=== PATIENT | male | born 1930 | race Caucasian/White ===

== ENCOUNTER 2017-06-17 09:34 | Emergency (ER) | payer OTHER ==
[~2017-06-17] VITALS: Ht 172.7 cm; Wt 72.6 kg
--- NOTE | ~2017-06-17 | EKG ---
[address] [address] ELECTROCARDIOGRAM REPORT Name: SHYLA LENNON [facility] [id number] Admission: 06/17/17 Attend Phys: Discharge: Date of : 32 Report #: [id number] THIS REPORT FOR: //name// [facility] ED Test Date: 2017-06-17 Test Time: 10:26:40 Pat Name: SHYLA LENNON Department: Room: Gender: Student Support Advisor: Too COSTA : 1930 Requested By: Marie Nelson Order Number: [id number] MD: Brenton Fleming Measurements Intervals [place] Rate: 63 P: 24 AL: 166 QRS: 61 QRSD: 93 T: 55 QT: 399 QTc: 409 Interpretive Statements Sinus rhythm No previous ECG available for comparison Electronically Signed On 06-17-2017 11:24:13 CDT by Brenton Fleming [email or web address] <ELECTRONICALLY SIGNED> By: Brenton Fleming MD 06/17/17 1124 1026 1026 Brenton Fleming MD /EPI
[2017-06-17 11:01] LABS: ABSOLUTE NEUTROPHILS 4.3 thou/uL (1.4-8.2); BASOPHILS 0.5 % (0.0-2.0); EOSINOPHILS 0.4 % (0.0-3.0); HEMATOCRIT 38.1 % (42.0-52.0); HEMOGLOBIN 12.7 gm/dL (14.0-18.0); LYMPHOCYTES 10.5 % (24.0-44.0); MANUAL DIFF NO; MCH 31.7 pg (26.0-34.0); MCHC 33.2 g/dL (28.0-37.0); MCV 95.4 fL (80.0-100.0); MONOCYTES 6.9 % (1.0-8.0); PLATELET COUNT 192 thou/uL (150-400); POLYS 81.7 % (36.0-66.0); RBC 3.99 mil/uL (4.50-6.00); RDW 13.7 % (10.5-14.5); WBC 5.3 thou/uL (4.0-11.0)
[2017-06-17 11:03] LABS: CREATININE 0.8 mg/dL (0.7-1.3); POTASSIUM 4.2 mmol/L (3.5-5.1)
[2017-06-17 11:23] VITALS: BP 125/59
== END 2017-06-17 11:59 | disposition home or self-care (01) ==
LOC: ER 09:34
PROVIDERS: Emergency Medicine
DX: R42 Dizziness and giddiness (principal); F03.90 Unspecified dementia, unspecified severity, without behavioral disturbance, psychotic disturbance, mood disturbance, and anxiety; Z87.891 Personal history of nicotine dependence; W18.39XA Other fall on same level, initial encounter; Y93.89 Activity, other specified; Y92.89 Other specified places as the place of occurrence of the external cause; Y99.8 Other external cause status

== ENCOUNTER 2018-02-10 11:44 | Inpatient (IN) | payer OTHER ==
[~2018-02-10] VITALS: Ht 177.8 cm; Wt 68.0 kg
--- NOTE | ~2018-02-10 | EKG ---
[address] [address] ELECTROCARDIOGRAM REPORT Name: SHYLA LENNON Room #: 430-P ADM IN M.R.#: [id number] Admission: 02/10/18 Attend Phys: Hunter Roberts MD Discharge: Date of : 32 Report #: [id number] THIS REPORT FOR: //name// [facility] ED Test Date: 2018-02-10 Test Time: 11:52:47 Pat Name: SHYLA LENNON Department: Room: Gender: [facility] Instructor: SHAKEEL : 1930 Requested By: Pastor Ortega Order Number: [id number] MD: Brenton Fleming Measurements Intervals [place] Rate: 66 P: 64 MA: 173 QRS: 49 QRSD: 87 T: 54 QT: 383 QTc: 402 Interpretive Statements Sinus rhythm Compared to ECG 06/17/2017 10:26:40 No significant changes Electronically Signed On 02-10-2018 19:55:28 CDT by Brenton Fleming [email or web address] <ELECTRONICALLY SIGNED> By: Brenton Fleming MD 02/10/181954 115 115 Brenton Fleming MD /ASA
[2018-02-10 11:45] VITALS: BP 118/70
[2018-02-10 12:25] LABS: HEMATOCRIT 35.7 % (42.0-52.0); HEMOGLOBIN 12.1 gm/dL (14.0-18.0); MCH 32.4 pg (26.0-34.0); MCV 95.1 fL (80.0-100.0); RBC 3.75 mil/uL (4.50-6.00); RDW 13.6 % (10.5-14.5)
[2018-02-10 12:35] LABS: ANION GAP 8 mmol/L (7-16); BUN 11 mg/dL (7-18); CALCIUM 9.2 mg/dL (8.5-10.1); CHLORIDE 96 mmol/L (98-107); CO2 24 mmol/L (21-32); CREATININE 0.9 mg/dL (0.7-1.3); GLUCOSE 132 mg/dL (74-106); POTASSIUM 4.1 mmol/L (3.5-5.1); SODIUM 128 mmol/L (136-145)
[2018-02-10 12:43] LABS: TROPONIN-I < 0.04 ng/mL (<0.06)
[2018-02-10 14:04] LABS: URINE BILIRUBIN NEGATIVE (Negative); URINE BLOOD NEGATIVE (Negative); URINE CLARITY CLEAR; URINE COLOR YELLOW; URINE GLUCOSE-RANDOM* NEGATIVE (Negative); URINE KETONES NEGATIVE (Negative); URINE LEUKOCYTES-REFLEX NEGATIVE (Negative); URINE NITRITE-REFLEX NEGATIVE (Negative); URINE PROTEIN (DIPSTICK) NEGATIVE (Negative); URINE UROBILINOGEN 0.2 E.U./dl (0.2-1.0)
[2018-02-10 14:34] VITALS: BP 118/70
[2018-02-10 16:01] VITALS: BP 172/89
[2018-02-10 20:40] VITALS: BP 136/76
[2018-02-11 04:04] VITALS: BP 110/66
[2018-02-11 05:42] LABS: HEMATOCRIT 35.2 % (42.0-52.0); MCH 32.1 pg (26.0-34.0); MCV 94.3 fL (80.0-100.0); RBC 3.74 mil/uL (4.50-6.00); RDW 13.8 % (10.5-14.5)
[2018-02-11 05:59] LABS: CALCIUM 8.9 mg/dL (8.5-10.1); CREATININE 0.9 mg/dL (0.7-1.3); POTASSIUM 3.8 mmol/L (3.5-5.1)
[2018-02-11 15:19] VITALS: BP 164/84
[2018-02-11 19:42] VITALS: BP 139/68
[2018-02-12 08:51] LABS: ABSOLUTE NEUTROPHILS 5.2 thou/uL (1.4-8.2); BASOPHILS 0.7 % (0.0-2.0); HEMATOCRIT 38.5 % (42.0-52.0); HEMOGLOBIN 12.7 gm/dL (14.0-18.0); MCH 31.7 pg (26.0-34.0); MCHC 33.1 g/dL (28.0-37.0); MCV 95.8 fL (80.0-100.0); MONOCYTES 8.2 % (1.0-8.0); PLATELET COUNT 241 thou/uL (150-400); POLYS 73.1 % (36.0-66.0); RBC 4.02 mil/uL (4.50-6.00); WBC 7.1 thou/uL (4.0-11.0)
[2018-02-12 08:54] LABS: CALCIUM 9.1 mg/dL (8.5-10.1); CREATININE 0.7 mg/dL (0.7-1.3); POTASSIUM 3.5 mmol/L (3.5-5.1)
[2018-02-12 12:04] VITALS: BP 172/78
[2018-02-12 16:56] VITALS: BP 166/87
[2018-02-12 20:24] VITALS: BP 137/44
[2018-02-12 21:00] VITALS: BP 180/87
[2018-02-13 06:45] VITALS: BP 174/84
[2018-02-13 08:51] VITALS: BP 159/42
[2018-02-13] MEDS ORDERED: ASPIR 8181 MG PO (10:42)
[2018-02-13] MEDS ORDERED: CENTRUM SILVER1 EAC4 PO (10:42)
[2018-02-13] MEDS ORDERED: LORAZEPAM 0.50.5 M1 PO (10:43)
[2018-02-13] MEDS ORDERED: ATIVAN0.5 MG PO (10:44)
[2018-02-13] MEDS ORDERED: MELATONIN5 M3 PO (10:45)
[2018-02-13] MEDS ORDERED: NYAMYC15 GM TOP (10:46)
[2018-02-13] MEDS ORDERED: REMERON15 MG PO (10:46)
[2018-02-13] MEDS ORDERED: TYLENOL325 MG PO (10:47)
[2018-02-13 16:41] VITALS: BP 148/76
[2018-02-13 19:15] VITALS: BP 173/82; BP 186/83
[2018-02-14 04:00] VITALS: BP 152/64
[2018-02-14 07:20] VITALS: BP 152/77
[2018-02-14 15:38] VITALS: BP 164/73
[2018-02-15] MEDS ORDERED: RAPAFLO8 MG PO (12:57)
== END 2018-02-14 18:46 | DRG 70 ==
LOC: ER 11:44 → 4E 15:57
PROVIDERS: Emergency Medicine; Hospitalist
DX: G93.41 Metabolic encephalopathy (principal); E43 Unspecified severe protein-calorie malnutrition; E87.1 Hypo-osmolality and hyponatremia; F03.91 Unspecified dementia, unspecified severity, with behavioral disturbance; F05 Delirium due to known physiological condition; R31.9 Hematuria, unspecified; R33.9 Retention of urine, unspecified; R26.9 Unspecified abnormalities of gait and mobility; R45.1 Restlessness and agitation; I10 Essential (primary) hypertension; W18.09XA Striking against other object with subsequent fall, initial encounter; Y93.89 Activity, other specified; Y92.89 Other specified places as the place of occurrence of the external cause; Y99.8 Other external cause status; Z87.891 Personal history of nicotine dependence; Z88.0 Allergy status to penicillin
CPT/HCPCS: 10783

== ENCOUNTER 2018-02-14 15:57 | Inpatient (IN) | payer OTHER ==
[~2018-02-14] VITALS: Ht 177.8 cm; Wt 58.2 kg
--- NOTE | ~2018-02-14 | HC ---
[facility] [place] [address] CONSULTATION Name: SHYLA LENNON Room #: 514-P [facility] IN M.R.#: [id number] Admission: 02/14/18 Attend Phys: Tj Marie MD Discharge: Date of : 32 Report #: [id number] THIS REPORT FOR: //name// CC: Tj Marie [facility] unknown DATE OF SERVICE: 02/16/2018 NEUROBEHAVIORAL STATUS EXAMINATION AGE: 87. ATTENDING PHYSICIAN: Tj Marie MD SUPERVISOR URANIUM PROCESSING: Yandel Garcia, PhD CLINICAL PRESENTATION: The patient is an 87-year-old male admitted to the rehab unit at [facility] to provide a comprehensive inpatient rehabilitation program to improve functional mobility, activities of daily living and self-care and mental status secondary to deficits from toxic metabolic encephalopathy. He was initially found down following a syncopal episode and was agitated and combative at the scene. He had been living in an assisted care facility and carries a diagnosis of dementia. The dementia had been identified about 4 years ago. His assessment on admission also includes hyponatremia, hypokalemia, possible concurrent mild head injury, altered mental status, functional decline, urinary retention with hematuria, history of hypertension and a former tobacco smoker. A complete description of his medical condition and history can be found in his medical record. Neuropsychological consultation was requested to provide assistance in the assessment of cognitive and emotional status and to provide recommendations and services. As indicated, prior to this most recent medical event, he was living with his in an assisted living facility for patients with dementia. His carries the diagnosis of Alzheimer's disease. The patient is a college graduate. 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 He has four children. His daughter, Bushra is his primary support system. TECHNIQUES UTILIZED: Clinical interview, review of medical records, staff consultation and behavioral observation, family interview -- daughter Bushra, mini mental status exam 2 brief version. EXAMINATION FINDINGS: The patient was alert and cooperative with the [facility] [address] [place] [address] CONSULTATION Name: SHYLA LENNON Room #: 514-P [facility] IN M.R.#: [id number] Admission: 02/14/18 Attend Phys: Tj Marie MD Discharge: Date of : 32 Report #: [id number] assessment. He was unable to describe the reason for his hospitalization. He does not present with auditory or visual hallucinations. However, he does have delusional ideation. His daughter indicates that he has often talked about relatives that have long since as if they were currently alive. He had been living with his and with a personal chef in their home until 2 years ago when they both moved to the [facility]. There is no reported prior history of treatment for depression or anxiety. The patient does not present with an aphasia. However, he does have deficits in naming suggesting an anomia. His performance on the MMSE 2 brief version was 5/16 suggesting severe impairment. He was 3/3 for initial registration, 2/5 for orientation to time, 0/[address], and 0/3 for immediate recall of 3 items after a brief time delay and distraction. 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 This type of presentation is consistent with an initial delirium with an underlying Alzheimer's type presentation. DIAGNOSTIC IMPRESSION: Major neurocognitive disorder (dementia), possibly due to Alzheimer's disease, with intermittent irritability and agitation -- extent to be determined, likely in the jybgnlyd-os-sjfcda range. Unspecified anxiety disorder. RECOMMENDATIONS: The patient will benefit from a validation type approach to communication. Statements that reflect confusion and delusional ideation should be responded with a validation approach that provides reassurance, rather than reality orientation. Distraction and redirection will also assist overall adjustment. Continued 24-hour care at discharge in a memory care unit is suggested. Consider the use of an antidepressant medication along with the medication to support memory and memantine. Thank you very much for allowing me to provide the consultation on this patient. <ELECTRONICALLY SIGNED> By: Yandel Garcia, PhD 02/17/18 1737 1454 [id number] Yandel Garcia, PhD /nt
--- NOTE | ~2018-02-14 | PLAN ---
[facility] [place] [address] REHAB UNIT PLAN OF CARE Name: SHYLA LENNON Room #: 514-P ADM IN M.R.#: [id number] Admission: 02/14/18 Attend Phys: Tj Marie MD Discharge: Date of : 32 Report #: [id number] THIS REPORT FOR: //name// CC: Tj Marie [facility] unknown DATE OF SERVICE: 02/15/2018 OVERALL PLAN OF CARE The overall plan of care is based on preadmission screen, post-admission physician evaluation and information garnered from therapy assessments: 1. Estimated length of stay is probably at least 1 to 2 weeks pending progress. 2. Medical prognosis is reasonably good. 3. Anticipated interventions includes the interdisciplinary acute inpatient rehabilitation program with PT, OT, speech, rehab nursing assisting regarding medication management, skin care prophylaxis, bowel and bladder issues with his Colon catheter. We will have the interdisciplinary rehab team involved as well as the pmo consultant physicians. 4. Anticipated functional outcomes would be for the patient to hopefully be back up ambulatory again at least with the walker and improved as far as his basic ADLs that he can return back to the prior functional level he was at, so he can get back to his assisted living. 5. Discharge destination would be back to the assisted living facility. 6. Expected therapy by discipline includes PT, OT and speech 1 hour per day each 5 days a week throughout the duration of the acute inpatient rehabilitation stay. <ELECTRONICALLY SIGNED> By: Tj Marie MD 02/21/18 1516 1004 1056 Tj Marie MD /nt
--- NOTE | ~2018-02-14 | H ---
[facility] [place] [address] HISTORY AND PHYSICAL Name: SHYLA LENNON Room #: 514-P ADM IN M.R.#: [id number] Admission: 02/14/18 Attend Phys: Tj Marie MD Discharge: Date of : 32 Report #: [id number] THIS REPORT FOR: //name// CC: Tj Marie [facility] unknown DATE OF SERVICE: 02/14/2018 HISTORY AND PHYSICAL/POSTADMISSION PHYSICIAN EVALUATION HISTORY OF PRESENT ILLNESS: The patient is an 87-year-old white male who resides in an assisted living facility at [place] [facility] in a memory care unit with his (the memory care unit is noted to be her), who presented after a syncopal episode while outside in the heat. He was found to be hyponatremic and very agitated and combative, which is noted to be out of the norm for him. He had a sitter while on the acute hospital side and there is a note of some underlying dementia, but his presentation was noted to be significantly worse than baseline. He previously had been ambulating independently without a gait aide. He had a Colon in place, pulled on it and caused some trauma at the end of the penis with bloody drainage. Urology saw him and recommended continuing the catheter for now with removal in a week or two and use of Rapaflo. The patient also was noted to have significant hypokalemia with supplementation. He was noted to have a significant worsening of his cognition with a toxic metabolic encephalopathy and a marked decrease in his functional abilities and has been admitted for acute in-hospital inpatient rehabilitation. ALLERGIES: PENICILLIN. PAST MEDICAL HISTORY: Includes hypertension. HABITS: Former tobacco abuse. No history of alcohol abuse. MEDICATIONS: Please see the full medication listing, this includes the patient's herbals, vitamins and supplements. SOCIAL HISTORY: As noted above. He had a walker in the past, but apparently, was not utilizing an assistive device and was modified independent at the facility, which is an assisted living facility with his . REVIEW OF SYSTEMS: Main issue is he does not like the Colon catheter. No complaints of chest pain, shortness of breath or abdominal discomfort. PHYSICAL EXAMINATION: GENERAL: The patient was seen yesterday. He was alert. VITAL SIGNS: His temperature is 36.4, pulse 72, respirations 17, blood pressure 137/80. [address] [address] HISTORY AND PHYSICAL Name: SHYLA LENNON Room #: 514-[facility] IN M.R.#: [id number] Admission: 02/14/18 Attend Phys: Tj Marie MD Discharge: Date of : 32 Report #: [id number] HEENT: Appeared to be benign. Facies were symmetric. CHEST: Sounded clear to auscultation. CARDIAC: Regular rate and rhythm. ABDOMEN: Bowel sounds positive, nontender. GENITOURINARY AND RECTAL: He does have indwelling Colon catheter. There is a slight amount of bloody drainage at the distal end of his penis. He tends to be fidgety and wants to remove the catheter. NEUROLOGIC AND MUSCULOSKELETAL: As far as his mental status, he tends to be fixated on the catheter removal. He does respond to simple redirection and has definite decreased insight, needs cues for direction following. He has functional range of motion of both upper extremities with strength of grade 4-/5. Lower extremities have functional range of motion with strength of grade 4-/5. Transfers are max assist, bed mobility has been min assist, lower body dressing is max assist. This is all a significant decrease from his premorbid status. ASSESSMENT: An 87-year-old white male with the following problem list: 1. Toxic metabolic encephalopathy. 2. Hyponatremia. 3. Hypokalemia. 4. Fall from ground level, question if he had a concurrent mild head injury. 5. Altered mental status. 6. Significant functional decline from premorbid status. 7. Urinary retention with hematuria. 8. History of hypertension. 9. Former tobacco smoker. PLAN: The patient is admitted for acute in-hospital inpatient rehabilitation. From a postadmission physician evaluation perspective, there are no relevant changes since the preadmission screening. Please see the above review of prior and current medical and functional conditions and comorbidities. Please see the patient's previous and current functional status. As far as risk of complications, the patient has the above noted medical comorbidities. Initial plan of care involves the interdisciplinary acute inpatient rehabilitation program with the goal of maximizing the patient's functional independence, so he can hopefully return back to his prior living situation. Prognosis is reasonably good with estimated length of stay probably at least 1 to 2 weeks. We will need to see how he does. Potential barriers would include his above noted comorbidities, the indwelling Colon catheter which he tends to focus on, and his decreased functional status. The patient meets diagnostic appropriate criteria. He does have the medical necessity for an acute inpatient rehabilitation stay and has appropriate discharge goals back to the home setting. He does have the tolerance for [facility] [address] [place] [address] HISTORY AND PHYSICAL Name: SHYLA LENNON Room #: 514-P ADM IN M.R.#: [id number] Admission: 02/14/18 Attend Phys: Tj Marie MD Discharge: Date of : 32 Report #: [id number] therapies and has appropriate discharge goals back home. He does meet the medical necessity criteria. <ELECTRONICALLY SIGNED> By: Tj Marie MD 02/21/18 1516 1001 1026 Tj Marie MD /nt
--- NOTE | ~2018-02-14 | D ---
[facility] [address] [place] [address] DISCHARGE SUMMARY Name: SHYLA LENNON Room #: 514-P ADM IN M.R.#: [id number] Admission: 02/14/18 Attend Phys: Tj Marie MD Discharge: Date of : 32 Report #: [id number] THIS REPORT FOR: //name// CC: Tj CRUZ unknown DATE OF SERVICE: 02/28/2018 DISCHARGE ADDENDUM The patient missed some therapy yesterday, 02/27/2018, secondary to a schedule conflict. <ELECTRONICALLY SIGNED> By: Tj Marie MD 02/28/18 1314 0939 1024 Tj Marie MD /nt
[~2018-02-14 15:57] MED LIST: ASPIR 8181 MG PO; ATIVAN0.5 MG PO; CENTRUM SILVER1 EAC4 PO; LORAZEPAM 0.50.5 M1 PO; MELATONIN5 M3 PO; NYAMYC15 GM TOP; REMERON15 MG PO; TYLENOL325 MG PO
[2018-02-14 18:30] VITALS: BP 149/72
[2018-02-15 03:00] LABS: HEMATOCRIT 31.6 % (42.0-52.0); MCH 32.3 pg (26.0-34.0); MCHC 33.8 g/dL (28.0-37.0); MCV 95.6 fL (80.0-100.0); RBC 3.31 mil/uL (4.50-6.00); RDW 13.6 % (10.5-14.5); WBC 6.5 thou/uL (4.0-11.0)
[2018-02-15 03:04] LABS: CALCIUM 8.4 mg/dL (8.5-10.1); CREATININE 0.6 mg/dL (0.7-1.3)
[2018-02-15 03:10] LABS: POTASSIUM 2.8 mmol/L (3.5-5.1)
[2018-02-15 03:12] LABS: HEMOGLOBIN 10.7 gm/dL (14.0-18.0)
[2018-02-15 09:00] VITALS: BP 137/80
[2018-02-15] MEDS ORDERED: RAPAFLO8 MG PO (12:57)
[2018-02-15 13:09] LABS: CALCIUM 9.5 mg/dL (8.5-10.1); CREATININE 0.6 mg/dL (0.7-1.3); MAGNESIUM 1.8 mg/dL (1.8-2.4)
[2018-02-15 13:11] LABS: POTASSIUM 3.8 mmol/L (3.5-5.1)
[2018-02-16 04:23] VITALS: BP 126/61
[2018-02-16 07:57] LABS: CALCIUM 9.1 mg/dL (8.5-10.1); CREATININE 0.6 mg/dL (0.7-1.3); MAGNESIUM 1.8 mg/dL (1.8-2.4); POTASSIUM 3.4 mmol/L (3.5-5.1)
[2018-02-16 08:30] VITALS: BP 115/52
[2018-02-16 14:00] LABS: MAGNESIUM 1.9 mg/dL (1.8-2.4); POTASSIUM 3.8 mmol/L (3.5-5.1)
[2018-02-16 20:05] VITALS: BP 148/58
[2018-02-17 08:16] VITALS: BP 119/56
[2018-02-17 19:41] VITALS: BP 153/85
[2018-02-18 05:55] LABS: ABSOLUTE NEUTROPHILS 2.7 thou/uL (1.4-8.2); BASOPHILS 1.4 % (0.0-2.0); EOSINOPHILS 5.4 % (0.0-3.0); HEMATOCRIT 31.8 % (42.0-52.0); HEMOGLOBIN 11.3 gm/dL (14.0-18.0); LYMPHOCYTES 22.4 % (24.0-44.0); MCHC 35.5 g/dL (28.0-37.0); MCV 95.8 fL (80.0-100.0); MONOCYTES 9.3 % (1.0-8.0); PLATELET COUNT 257 thou/uL (150-400); POLYS 61.5 % (36.0-66.0); RBC 3.32 mil/uL (4.50-6.00); RDW 13.9 % (10.5-14.5); WBC 4.5 thou/uL (4.0-11.0)
[2018-02-18 05:57] LABS: CALCIUM 9.2 mg/dL (8.5-10.1); CREATININE 0.7 mg/dL (0.7-1.3); MAGNESIUM 1.9 mg/dL (1.8-2.4); POTASSIUM 3.8 mmol/L (3.5-5.1)
[2018-02-18 07:44] VITALS: BP 105/49
[2018-02-18 19:34] VITALS: BP 139/67
[2018-02-19 07:42] VITALS: BP 121/62
[2018-02-19 19:55] VITALS: BP 125/66
[2018-02-20 07:36] VITALS: BP 102/50
[2018-02-20 21:15] VITALS: BP 151/66
[2018-02-21 08:00] VITALS: BP 103/44
[2018-02-21 19:45] VITALS: BP 134/74
[2018-02-22 07:21] VITALS: BP 136/42
[2018-02-22 19:29] VITALS: BP 145/70
[2018-02-23 07:46] VITALS: BP 128/51
[2018-02-23 19:25] VITALS: BP 123/71
[2018-02-24 03:44] LABS: CALCIUM 8.4 mg/dL (8.5-10.1); CREATININE 0.8 mg/dL (0.7-1.3)
[2018-02-24 03:52] LABS: ABSOLUTE NEUTROPHILS 2.7 thou/uL (1.4-8.2); BASOPHILS 1.1 % (0.0-2.0); HEMOGLOBIN 10.6 gm/dL (14.0-18.0); LYMPHOCYTES 23.4 % (24.0-44.0); MCH 32.4 pg (26.0-34.0); MCHC 34.2 g/dL (28.0-37.0); MCV 94.9 fL (80.0-100.0); MONOCYTES 10.2 % (1.0-8.0); PLATELET COUNT 264 thou/uL (150-400); POLYS 60.3 % (36.0-66.0); RBC 3.26 mil/uL (4.50-6.00); RDW 13.7 % (10.5-14.5); WBC 4.4 thou/uL (4.0-11.0)
[2018-02-24 08:30] VITALS: BP 126/54
[2018-02-24 19:45] VITALS: BP 141/62
[2018-02-25 16:00] VITALS: BP 140/59
[2018-02-26 08:15] VITALS: BP 136/73
[2018-02-26 20:04] VITALS: BP 144/78
[2018-02-27 08:30] VITALS: BP 122/63
[2018-02-27 08:34] LABS: ABSOLUTE NEUTROPHILS 3.5 thou/uL (1.4-8.2); BASOPHILS 1.2 % (0.0-2.0); EOSINOPHILS 3.6 % (0.0-3.0); HEMATOCRIT 35.1 % (42.0-52.0); HEMOGLOBIN 11.8 gm/dL (14.0-18.0); LYMPHOCYTES 19.3 % (24.0-44.0); MCH 32.1 pg (26.0-34.0); MCHC 33.6 g/dL (28.0-37.0); MCV 95.6 fL (80.0-100.0); MONOCYTES 8.9 % (1.0-8.0); PLATELET COUNT 273 thou/uL (150-400); RBC 3.67 mil/uL (4.50-6.00); RDW 14.1 % (10.5-14.5); WBC 5.2 thou/uL (4.0-11.0)
[2018-02-27 08:44] LABS: CALCIUM 9.5 mg/dL (8.5-10.1); CREATININE 0.8 mg/dL (0.7-1.3); MAGNESIUM 2.2 mg/dL (1.8-2.4); POTASSIUM 4.1 mmol/L (3.5-5.1)
[2018-02-27] MEDS ORDERED: FLOMAX0.4 MG PO (15:45)
[2018-02-27] MEDS ORDERED: PEPCID20 MG PO (15:45)
[2018-02-27] MEDS ORDERED: SEROQUEL 25 MG25 M1 PO (15:45)
[2018-02-27] MEDS ORDERED: ZYPREXA 5 MG TAB5 M2 PO (15:45)
[2018-02-27 20:18] VITALS: BP 136/66
[2018-02-28 09:05] VITALS: BP 117/55
[2018-02-28] MEDS ORDERED: RAPAFLO8 MG PO (10:12)
== END 2018-02-28 11:10 | DRG 92 ==
PROVIDERS: Internal Medicine; Nurse Practitioner; Physical Medicine & Rehabilitation
DX: G92 Toxic encephalopathy (principal); E87.1 Hypo-osmolality and hyponatremia; E87.6 Hypokalemia; I10 Essential (primary) hypertension; R33.9 Retention of urine, unspecified; F01.50 Vascular dementia, unspecified severity, without behavioral disturbance, psychotic disturbance, mood disturbance, and anxiety; F41.9 Anxiety disorder, unspecified; R31.9 Hematuria, unspecified; G30.9 Alzheimer's disease, unspecified; F02.80 Dementia in other diseases classified elsewhere, unspecified severity, without behavioral disturbance, psychotic disturbance, mood disturbance, and anxiety; R55 Syncope and collapse; R26.9 Unspecified abnormalities of gait and mobility; R41.0 Disorientation, unspecified; R45.1 Restlessness and agitation; W18.39XA Other fall on same level, initial encounter; R53.81 Other malaise; E83.42 Hypomagnesemia; F32.9 Major depressive disorder, single episode, unspecified; Z87.891 Personal history of nicotine dependence; Z88.0 Allergy status to penicillin; Y93.89 Activity, other specified; Y92.89 Other specified places as the place of occurrence of the external cause; Y99.8 Other external cause status
CPT/HCPCS: 10112

== ENCOUNTER 2018-04-07 17:05 | Emergency (ER) | payer OTHER ==
[~2018-04-07] VITALS: Ht 167.6 cm; Wt 54.4 kg
[~2018-04-07 17:05] MED LIST changes: +FLOMAX0.4 MG PO; +PEPCID20 MG PO; +RAPAFLO8 MG PO; +SEROQUEL 25 MG25 M1 PO; +ZYPREXA 5 MG TAB5 M2 PO
[2018-04-07 17:45] LABS: URINE BILIRUBIN NEGATIVE (Negative); URINE BLOOD 3+ (Negative); URINE CLARITY SL CLOUDY; URINE COLOR YELLOW; URINE GLUCOSE-RANDOM* NEGATIVE (Negative); URINE KETONES NEGATIVE (Negative); URINE LEUKOCYTES-REFLEX 2+ (Negative); URINE NITRITE-REFLEX POSITIVE (Negative); URINE PROTEIN (DIPSTICK) 1+ (Negative); URINE UROBILINOGEN 0.2 E.U./dl (0.2-1.0)
[2018-04-07 18:11] LABS: CASTS None Seen /LPF (None Seen); SQUAMOUS 0-3 Few /LPF (0-3); URINE RBC >20 Many /HPF (0-2); URINE WBC-REFLEX 6-15 Few /HPF (0-5)
[2018-04-07 18:12] LABS: BACTERIA-REFLEX >30 Many /HPF (None Seen); CRYSTALS None Seen /LPF (None Seen)
[2018-04-07] MEDS ORDERED: KEFLEX500 M1 PO (18:45)
== END 2018-04-07 19:26 | disposition home or self-care (01) ==
LOC: ER 17:05
PROVIDERS: Emergency Medicine
DX: N39.0 Urinary tract infection, site not specified (principal); Z46.6 Encounter for fitting and adjustment of urinary device; G30.9 Alzheimer's disease, unspecified; F02.80 Dementia in other diseases classified elsewhere, unspecified severity, without behavioral disturbance, psychotic disturbance, mood disturbance, and anxiety; Z88.0 Allergy status to penicillin; Z87.891 Personal history of nicotine dependence

== ENCOUNTER 2018-04-08 11:15 | Emergency (ER) | payer OTHER ==
[~2018-04-08] VITALS: Ht 167.6 cm; Wt 54.4 kg
[~2018-04-08 11:15] MED LIST changes: +KEFLEX500 M1 PO
== END 2018-04-08 16:13 ==
LOC: ER 11:15
DX: T83.83XA Hemorrhage due to genitourinary prosthetic devices, implants and grafts, initial encounter (principal); G30.9 Alzheimer's disease, unspecified; F02.80 Dementia in other diseases classified elsewhere, unspecified severity, without behavioral disturbance, psychotic disturbance, mood disturbance, and anxiety; Z87.891 Personal history of nicotine dependence; Z88.0 Allergy status to penicillin

== ENCOUNTER 2018-04-08 19:14 | Inpatient (IN) | payer OTHER ==
[~2018-04-08] VITALS: Ht 180.3 cm; Wt 54.9 kg
[2018-04-08 19:15] VITALS: BP 124/80
[2018-04-08 19:38] LABS: URINE BLOOD 3+ (Negative); URINE CLARITY TURBID; URINE COLOR RED; URINE GLUCOSE-RANDOM* NEGATIVE (Negative); URINE KETONES 2+ (Negative); URINE NITRITE-REFLEX NEGATIVE (Negative); URINE PROTEIN (DIPSTICK) 2+ (Negative)
[2018-04-08 19:39] LABS: ICTOTEST (BILI CONFIRMATORY) Negative (Negative); URINE BILIRUBIN NEGATIVE (Negative); URINE LEUKOCYTES-REFLEX 3+ (Negative)
[2018-04-08 19:47] LABS: AMORPHOUS URATES Moderate /LPF (None Seen); BACTERIA-REFLEX 1-9 Few /HPF (None Seen); CASTS None Seen /LPF (None Seen); MUCUS >6 Heavy strn/LPF (None Seen); SQUAMOUS 0-3 Few /LPF (0-3); URINE RBC >20 Many /HPF (0-2); URINE WBC-REFLEX >25 Many /HPF (0-5)
[2018-04-08 19:51] LABS: ABSOLUTE NEUTROPHILS 9.9 thou/uL (1.4-8.2); BASOPHILS 0.3 % (0.0-2.0); EOSINOPHILS 0.1 % (0.0-3.0); HEMATOCRIT 34.4 % (42.0-52.0); HEMOGLOBIN 11.7 gm/dL (14.0-18.0); LYMPHOCYTES 5.9 % (24.0-44.0); MCH 31.8 pg (26.0-34.0); MCHC 34.1 g/dL (28.0-37.0); MCV 93.4 fL (80.0-100.0); MONOCYTES 6.5 % (1.0-8.0); PLATELET COUNT 307 thou/uL (150-400); POLYS 87.2 % (36.0-66.0); RBC 3.69 mil/uL (4.50-6.00); RDW 14.2 % (10.5-14.5); WBC 11.3 thou/uL (4.0-11.0)
[2018-04-08 19:59] LABS: CALCIUM 9.3 mg/dL (8.5-10.1); CREATININE 0.7 mg/dL (0.7-1.3); POTASSIUM 3.7 mmol/L (3.5-5.1)
[2018-04-09 07:11] VITALS: BP 142/54
[2018-04-09 18:09] VITALS: BP 140/62
[2018-04-09 19:18] VITALS: BP 125/52
[2018-04-10 06:38] VITALS: BP 118/50
[2018-04-10 06:43] LABS: CALCIUM 8.3 mg/dL (8.5-10.1); CREATININE 0.6 mg/dL (0.7-1.3); POTASSIUM 3.5 mmol/L (3.5-5.1)
[2018-04-10 07:50] VITALS: BP 112/47
[2018-04-10 19:18] VITALS: BP 121/57
[2018-04-11 04:35] VITALS: BP 131/56
[2018-04-11 06:21] LABS: HEMATOCRIT 30.2 % (42.0-52.0); HEMOGLOBIN 10.3 gm/dL (14.0-18.0); MCH 32.1 pg (26.0-34.0); MCHC 34.1 g/dL (28.0-37.0); RBC 3.21 mil/uL (4.50-6.00); RDW 14.8 % (10.5-14.5); WBC 5.4 thou/uL (4.0-11.0)
[2018-04-11 08:52] VITALS: BP 125/63
[2018-04-11 14:37] VITALS: BP 148/67
[2018-04-11 19:30] VITALS: BP 144/74
[2018-04-12] MEDS ORDERED: ZYPREXA 5 MG TAB5 M2 PO (09:01)
[2018-04-12] MEDS ORDERED: FLOMAX0.4 MG PO (09:01)
[2018-04-12] MEDS ORDERED: SEROQUEL 25 MG25 M1 PO (09:01)
[2018-04-12 09:21] LABS: CALCIUM 9.1 mg/dL (8.5-10.1); CREATININE 0.7 mg/dL (0.7-1.3); PHOSPHORUS 4.1 mg/dL (2.5-4.9); POTASSIUM 4.5 mmol/L (3.5-5.1)
== END 2018-04-12 14:07 | DRG 698 ==
LOC: ER 19:14 → EROBS 21:30 → 4E 21:30
PROVIDERS: Emergency Medicine; Hospitalist
DX: S37.30XA Unspecified injury of urethra, initial encounter (principal); G93.41 Metabolic encephalopathy; E87.1 Hypo-osmolality and hyponatremia; N39.0 Urinary tract infection, site not specified; F02.81 Dementia in other diseases classified elsewhere, unspecified severity, with behavioral disturbance; X58.XXXA Exposure to other specified factors, initial encounter; Y93.89 Activity, other specified; Y92.89 Other specified places as the place of occurrence of the external cause; Y99.8 Other external cause status; G30.9 Alzheimer's disease, unspecified; Z88.0 Allergy status to penicillin; Z87.891 Personal history of nicotine dependence; I10 Essential (primary) hypertension; N40.1 Benign prostatic hyperplasia with lower urinary tract symptoms; Z79.82 Long term (current) use of aspirin; Z79.899 Other long term (current) drug therapy; R41.0 Disorientation, unspecified
CPT/HCPCS: 10084

== ENCOUNTER 2018-04-15 19:59 | Emergency (ER) | payer OTHER ==
[~2018-04-15] VITALS: Ht 175.3 cm; Wt 72.6 kg
[2018-04-15 20:21] LABS: HEMATOCRIT 30.6 % (42.0-52.0); HEMOGLOBIN 10.3 gm/dL (14.0-18.0); MCH 31.8 pg (26.0-34.0); MCHC 33.8 g/dL (28.0-37.0); MCV 94.1 fL (80.0-100.0); PLATELET COUNT 267 thou/uL (150-400); RBC 3.25 mil/uL (4.50-6.00); RDW 14.9 % (10.5-14.5); WBC 4.7 thou/uL (4.0-11.0)
[2018-04-15 20:31] LABS: CALCIUM 8.9 mg/dL (8.5-10.1); CREATININE 0.8 mg/dL (0.7-1.3); POTASSIUM 4.1 mmol/L (3.5-5.1)
[2018-04-15 20:32] LABS: URINE BILIRUBIN NEGATIVE (Negative); URINE BLOOD 3+ (Negative); URINE CLARITY CLEAR; URINE COLOR YELLOW; URINE GLUCOSE-RANDOM* NEGATIVE (Negative); URINE KETONES NEGATIVE (Negative); URINE LEUKOCYTES-REFLEX NEGATIVE (Negative); URINE NITRITE-REFLEX NEGATIVE (Negative); URINE PROTEIN (DIPSTICK) NEGATIVE (Negative); URINE SPECIFIC GRAVITY <= 1.005 (1.005-1.035); URINE UROBILINOGEN 0.2 E.U./dl (0.2-1.0)
[2018-04-15 20:38] LABS: CASTS None Seen /LPF (None Seen); SQUAMOUS 0-3 Few /LPF (0-3); URINE WBC-REFLEX 0-5 Rare /HPF (0-5)
[2018-04-15 20:39] LABS: BACTERIA-REFLEX None Seen /HPF (None Seen); CRYSTALS None Seen /LPF (None Seen); URINE RBC >20 Many /HPF (0-2)
[2018-04-15 20:45] LABS: ABSOLUTE NEUTROPHILS 3.1 thou/uL (1.4-8.2)
[2018-04-15 20:46] LABS: ANISOCYTOSIS 2+; HYPOCHROMASIA SLIGHT; POLYCHROMASIA OCCASIONAL
[2018-04-15] MEDS ORDERED: DEPAKOTE ER250 MG PO (22:35)
[2018-04-15] MEDS ORDERED: NYSTATIN 100,0015 G1 TOP (22:36)
== END 2018-04-15 23:03 | disposition home or self-care (01) ==
LOC: ER 19:59
PROVIDERS: Physician Assistant
DX: R31.9 Hematuria, unspecified (principal); Z46.6 Encounter for fitting and adjustment of urinary device; I10 Essential (primary) hypertension; F02.81 Dementia in other diseases classified elsewhere, unspecified severity, with behavioral disturbance; G30.9 Alzheimer's disease, unspecified; Z87.891 Personal history of nicotine dependence; Z88.0 Allergy status to penicillin; Z86.018 Personal history of other benign neoplasm